=== PATIENT | male | born 1935 | race Caucasian/White ===

== ENCOUNTER 2020-04-19 14:13 | Inpatient (IN) | payer OTHER, MEDICAID ==
[~2020-04-19] VITALS: Ht 177.8 cm; Wt 77.0 kg
[2020-04-19 19:49] LABS: Basophils # (auto) 0.1 10 ^3/uL (0-0.2); Basophils % (auto) 0.7 % (0.0-2.0); Eosinophils # (auto) 0 10 ^3/uL (0-0.8); Eosinophils % (auto) 0.4 % (0.0-7.0); Hematocrit 43.6 % (41.0-53.0); Hemoglobin 15.2 g/dL (13.5-17.5); Lymphocytes # (auto) 1.4 10 ^3/uL (0.4-5.4); Lymphocytes % (auto) 13.4 % (10.0-50.0); Mean Corpuscular Hemoglobin 33.6 pg (28.0-32.0); Mean Corpuscular Volume 96.1 fL (80.0-100.0); Monocytes # (auto) 0.8 10 ^3/uL (0-1.3); Monocytes % (auto) 7.4 % (0.0-12.0); Neutrophils # (auto) 8.2 10 ^3/uL (1.6-8.6); Neutrophils % (auto) 78.1 % (37.0-80.0); Platelet Count (auto) 154 10^3/uL (140-450); Red Blood Cells 4.54 10^6/uL (4.5-5.90); Red Cell Distribution Width 13.7 % (11.8-14.3); White Blood Cell 10.5 10^3/uL (4.4-10.8)
[2020-04-19 20:19] LABS: Albumin 1.7 g/dL (3.4-5.0); Anion Gap 8 (5-15); Blood Urea Nitrogen 9 mg/dL (7-18); Carbon Dioxide 14 mmol/L (21-32); Chloride 130 mmol/L (98-107); Glucose 93 mg/dL (74-106); Sodium 152 mmol/L (136-145)
[2020-04-19 20:28] LABS: Alanine Aminotransferase 12 U/L (16-61); Alkaline Phosphatase 27 U/L (45-117); Aspartate Aminotransferase 7 U/L (15-37); Bilirubin, Total 0.4 mg/dL (0.2-1.0); GFR African American 451 mL/min; GFR Non-African American 373 mL/min; Total Protein 3.4 g/dL (6.4-8.2)
[2020-04-19 20:40] LABS: Potassium 1.8 mmol/L (3.5-5.1)
[2020-04-19 20:41] LABS: Calcium < 5.0 mg/dL (8.5-10.1)
[2020-04-19] MEDS ORDERED: POTASSIUM CHL 20MEQ/100ML 100 ML IV ONE (20:45)
[2020-04-19] MEDS ORDERED: POTASSIUM EFFERVESENT TAB 25 MEQ PO ONE (20:45)
[2020-04-19] MEDS ORDERED: CALCIUM GLUC 4.65meq/50ml D5AE 50 ML IV ONE (21:00)
[2020-04-19 21:45] LABS: Urine Bacteria NONE SEEN /hpf (None Seen); Urine Blood Negative /uL (Negative); Urine Specific Gravity 1.016 (1.001-1.035); Urine WBC 1 /hpf (0 - 3)
[2020-04-19 22:09] LABS: Alcohol, Urine < 3.0 mg/dL (0-10); Amphetamine Screen, Urine NEGATIVE (NEGATIVE); Barbiturate Scree,Urine NEGATIVE (NEGATIVE); Benzodiazephine Screen, Urine NEGATIVE (NEGATIVE); Cannabinoid Screen, Urine NEGATIVE (NEGATIVE); Cocaine Screen, Urine NEGATIVE (NEGATIVE); Opiate Scree,Urine NEGATIVE (NEGATIVE); Phencyclidine Screen, Urine NEGATIVE (NEGATIVE)
[2020-04-19] MEDS ORDERED: DOCUSATE SOD 100 MG CAP PO PRN (23:00)
[2020-04-19] MEDS ORDERED: HYDROcodone-ACET 5/325MG TAB PO PRN (23:00)
[2020-04-19] MEDS: SODIUM CHLORIDE 0.9% 1,000 ML IV SCH (23:00)
[2020-04-19] MEDS ORDERED: ONDANSETRON HCL 4 MG/2 ML VIAL IV PRN (23:00)
[2020-04-20 07:30] LABS: Basophils # (auto) 0 10 ^3/uL (0-0.2); Basophils % (auto) 0.4 % (0.0-2.0); Eosinophils # (auto) 0.1 10 ^3/uL (0-0.8); Eosinophils % (auto) 1.5 % (0.0-7.0); Hematocrit 44.2 % (41.0-53.0); Hemoglobin 15.2 g/dL (13.5-17.5); Lymphocytes # (auto) 0.9 10 ^3/uL (0.4-5.4); Lymphocytes % (auto) 12.1 % (10.0-50.0); Mean Corpuscular Hemoglobin 33.3 pg (28.0-32.0); Mean Corpuscular Hgb Conc. 34.4 g/dL (32.0-36.0); Mean Corpuscular Volume 96.9 fL (80.0-100.0); Monocytes # (auto) 0.5 10 ^3/uL (0-1.3); Monocytes % (auto) 7.2 % (0.0-12.0); Neutrophils % (auto) 78.8 % (37.0-80.0); Platelet Count (auto) 133 10^3/uL (140-450); Red Blood Cells 4.56 10^6/uL (4.5-5.90); Red Cell Distribution Width 13.8 % (11.8-14.3); White Blood Cell 7.6 10^3/uL (4.4-10.8)
[2020-04-20 07:42] LABS: Potassium 3.9 mmol/L (3.5-5.1)
[2020-04-20 07:56] LABS: BUN/Creatinine Ratio 14.9; Calcium 8.6 mg/dL (8.5-10.1)
[2020-04-20] MEDS ORDERED: DEXTROSE (50%) 50ML SYRG IV PRN (09:45)
[2020-04-20] MEDS: ACCU-CHEK COMFORT CURVE STRIP VI SCH ×3 (12:21→21:40)
[2020-04-20] MEDS: InsuLIN REG 1unit/0.01ml Soln (100units/ml) SC SCH ×3 (12:23→21:50)
[2020-04-20 16:00] VITALS: BP 147/95
[2020-04-20] MEDS: ACETAMINOPHEN 325 MG TAB PO PRN (16:30)
[2020-04-20] MEDS: SODIUM CHLORIDE 0.9% 1,000 ML IV SCH (18:50)
[2020-04-20 22:00] VITALS: BP 144/75
[2020-04-21 05:02] VITALS: BP 131/54
[2020-04-21] MEDS: ACCU-CHEK COMFORT CURVE STRIP VI SCH ×4 (06:28→21:56)
[2020-04-21] MEDS: InsuLIN REG 1unit/0.01ml Soln (100units/ml) SC SCH ×4 (06:36→21:59)
[2020-04-21 08:00] VITALS: BP 167/93
[2020-04-21 09:00] VITALS: BP 147/37
[2020-04-21 10:17] LABS: BUN/Creatinine Ratio 16.2; Potassium 3.9 mmol/L (3.5-5.1)
[2020-04-21] MEDS: SODIUM CHLORIDE 0.9% 1,000 ML IV SCH (11:46)
[2020-04-21] MEDS: ACETAMINOPHEN 325 MG TAB PO PRN ×2 (11:48→21:58)
[2020-04-21 13:58] LABS: Basophils # (auto) 0.1 10 ^3/uL (0-0.2); Basophils % (auto) 0.7 % (0.0-2.0); Eosinophils # (auto) 0.2 10 ^3/uL (0-0.8); Eosinophils % (auto) 3.2 % (0.0-7.0); Hematocrit 44.4 % (41.0-53.0); Hemoglobin 15.2 g/dL (13.5-17.5); Lymphocytes # (auto) 1.1 10 ^3/uL (0.4-5.4); Lymphocytes % (auto) 15.2 % (10.0-50.0); Mean Corpuscular Hemoglobin 33.4 pg (28.0-32.0); Mean Corpuscular Hgb Conc. 34.3 g/dL (32.0-36.0); Mean Corpuscular Volume 97.3 fL (80.0-100.0); Monocytes # (auto) 0.4 10 ^3/uL (0-1.3); Monocytes % (auto) 5.5 % (0.0-12.0); Neutrophils # (auto) 5.4 10 ^3/uL (1.6-8.6); Neutrophils % (auto) 75.4 % (37.0-80.0); Platelet Count (auto) 131 10^3/uL (140-450); Red Blood Cells 4.56 10^6/uL (4.5-5.90); Red Cell Distribution Width 13.8 % (11.8-14.3); White Blood Cell 7.1 10^3/uL (4.4-10.8)
[2020-04-21 15:50] VITALS: BP 162/78
[2020-04-21] MEDS ORDERED: cloNIDine HCL 0.1 MG TAB PO PRN (22:00)
[2020-04-21 22:24] VITALS: BP 165/92
[2020-04-22] MEDS: SODIUM CHLORIDE 0.9% 1,000 ML IV SCH (04:11)
[2020-04-22 05:00] VITALS: BP 130/73
[2020-04-22] MEDS: ACCU-CHEK COMFORT CURVE STRIP VI SCH ×4 (06:23→21:46)
[2020-04-22] MEDS: InsuLIN REG 1unit/0.01ml Soln (100units/ml) SC SCH ×4 (06:25→21:53)
[2020-04-22 09:00] VITALS: BP 165/83
[2020-04-22] MEDS ORDERED: PANTOPRAZOLE 40 MG TAB PO ONE (10:30)
[2020-04-22] MEDS ORDERED: DOCUSATE SOD 100 MG CAP PO ONE (10:30)
[2020-04-22] MEDS ORDERED: NAPROXEN 500 MG TAB PO ONE (10:30)
[2020-04-22 13:00] VITALS: BP 123/70
[2020-04-22 17:00] VITALS: BP 147/82
[2020-04-22] MEDS: NAPROXEN 500 MG TAB PO SCH (21:46)
[2020-04-22 22:00] VITALS: BP 109/87
[2020-04-22] MEDS: DOCUSATE SOD 100 MG CAP PO SCH (22:03)
[2020-04-23] MEDS: ACETAMINOPHEN 325 MG TAB PO PRN ×2 (04:29→20:40)
[2020-04-23 05:00] VITALS: BP 146/79
[2020-04-23 06:13] LABS: Calcium 8.1 mg/dL (8.5-10.1)
[2020-04-23 06:17] LABS: BUN/Creatinine Ratio 23.1
[2020-04-23] MEDS: ACCU-CHEK COMFORT CURVE STRIP VI SCH ×4 (06:37→23:03)
[2020-04-23] MEDS: InsuLIN REG 1unit/0.01ml Soln (100units/ml) SC SCH ×4 (06:40→23:02)
[2020-04-23 08:00] VITALS: BP 154/80
[2020-04-23 09:00] VITALS: BP 154/80
[2020-04-23] MEDS: DOCUSATE SOD 100 MG CAP PO SCH ×2 (10:00→22:00)
[2020-04-23] MEDS: PANTOPRAZOLE 40 MG TAB PO SCH (10:21)
[2020-04-23] MEDS: NAPROXEN 500 MG TAB PO SCH ×2 (10:28→23:00)
[2020-04-23 13:00] VITALS: BP 154/70
[2020-04-23 17:00] VITALS: BP 152/80
[2020-04-23 22:00] VITALS: BP 150/77
[2020-04-24 05:00] VITALS: BP 161/91
[2020-04-24] MEDS: ACCU-CHEK COMFORT CURVE STRIP VI SCH ×2 (06:16→11:29)
[2020-04-24] MEDS: InsuLIN REG 1unit/0.01ml Soln (100units/ml) SC SCH ×2 (06:51→11:34)
[2020-04-24 09:00] VITALS: BP 159/85
[2020-04-24] MEDS: PANTOPRAZOLE 40 MG TAB PO SCH (10:41)
[2020-04-24] MEDS: NAPROXEN 500 MG TAB PO SCH (10:42)
[2020-04-24] MEDS: DOCUSATE SOD 100 MG CAP PO SCH (10:42)
[2020-04-24 13:00] VITALS: BP 142/75
[2020-04-24 15:48] VITALS: BP 142/75
== END 2020-04-24 19:22 | DRG 641 ==
LOC: EDBD 14:13 → ER 14:13 → TELE 14:14 → TELE-WESTW 04-20 14:10
PROVIDERS: ADMIT Hospitalist; ATTEND Internal Medicine Geriatric Medicine
DX: E86.0 Dehydration (principal); N17.9 Acute kidney failure, unspecified; M54.16 Radiculopathy, lumbar region; E87.0 Hyperosmolality and hypernatremia; M25.552 Pain in left hip; E87.6 Hypokalemia; E83.51 Hypocalcemia; I10 Essential (primary) hypertension; E11.9 Type 2 diabetes mellitus without complications; R55 Syncope and collapse; W18.39XA Other fall on same level, initial encounter; Z20.822 Contact with and (suspected) exposure to COVID-19; M85.80 Other specified disorders of bone density and structure, unspecified site; Z85.828 Personal history of other malignant neoplasm of skin; Y93.89 Activity, other specified; Y92.098 Other place in other non-institutional residence as the place of occurrence of the external cause; Y99.8 Other external cause status
CPT/HCPCS: 36415; 70450; 71045; 72100; 72125; 72128; 72131; 73502; 80048; 80053; 80061; 80307; 80320; 81001; 82962; 83036; 83735; 83880; 84484; 85025; 87426; 87493; 96361; 96365; 97116; 97163; 97530; G0378; J0610; J1815; J3480

== ENCOUNTER 2021-10-10 12:42 | Emergency (ER) | payer OTHER, MEDICAID ==
[~2021-10-10] VITALS: Ht 177.8 cm; Wt 90.0 kg
[2021-10-10 12:55] VITALS: BP 142/75
[2021-10-10 13:54] LABS: Basophils # (auto) 0 10 ^3/uL (0-0.2); Basophils % (auto) 0.5 % (0.0-2.0); Eosinophils # (auto) 0.1 10 ^3/uL (0-0.8); Eosinophils % (auto) 1.3 % (0.0-7.0); Hematocrit 41.3 % (41.0-53.0); Hemoglobin 13.6 g/dL (13.5-17.5); Lymphocytes # (auto) 0.7 10 ^3/uL (0.4-5.4); Lymphocytes % (auto) 11.9 % (10.0-50.0); Mean Corpuscular Hemoglobin 32.2 pg (28.0-32.0); Mean Corpuscular Hgb Conc. 32.8 g/dL (32.0-36.0); Mean Corpuscular Volume 98.1 fL (80.0-100.0); Monocytes # (auto) 0.5 10 ^3/uL (0-1.3); Monocytes % (auto) 7.7 % (0.0-12.0); Neutrophils # (auto) 4.6 10 ^3/uL (1.6-8.6); Neutrophils % (auto) 78.6 % (37.0-80.0); Red Blood Cells 4.22 10^6/uL (4.5-5.90); Red Cell Distribution Width 12.9 % (11.8-14.3); White Blood Cell 5.9 10^3/uL (4.4-10.8)
[2021-10-10 14:10] LABS: Albumin 3.5 g/dL (3.4-5.0); Anion Gap 10 (5-15); Blood Alcohol < 3.0 mg/dL (0-5); Blood Urea Nitrogen 24 mg/dL (7-18); Calcium 8.1 mg/dL (8.5-10.1); Carbon Dioxide 18 mmol/L (21-32); Chloride 111 mmol/L (98-107); Glucose 170 mg/dL (74-106); Potassium 3.8 mmol/L (3.5-5.1); Sodium 139 mmol/L (136-145)
[2021-10-10 14:13] LABS: Alanine Aminotransferase 18 U/L (16-61); Alkaline Phosphatase 68 U/L (45-117); Aspartate Aminotransferase 16 U/L (15-37); BUN/Creatinine Ratio 22.4; Bilirubin, Total 0.5 mg/dL (0.2-1.0); GFR African American 84 mL/min; GFR Non-African American 69 mL/min; Total Protein 6.4 g/dL (6.4-8.2)
[2021-10-10] MEDS ORDERED: SODIUM CHLORIDE 0.9% 1,000 ML IV ONE (14:45)
== END 2021-10-10 18:44 | disposition home or self-care (01) ==
LOC: EDBD 12:42 → ER 12:42
DX: T67.5XXA Heat exhaustion, unspecified, initial encounter (principal); R41.82 Altered mental status, unspecified; E11.65 Type 2 diabetes mellitus with hyperglycemia; I10 Essential (primary) hypertension; X58.XXXA Exposure to other specified factors, initial encounter; Y93.89 Activity, other specified; Y92.89 Other specified places as the place of occurrence of the external cause; Y99.8 Other external cause status; M19.90 Unspecified osteoarthritis, unspecified site
CPT/HCPCS: 36415; 70450; 71045; 80053; 80320; 83735; 84484; 85025; 93005; 96360; 96361; 99285; J7030

== ENCOUNTER 2022-04-27 12:18 | Inpatient (IN) | payer OTHER ==
[~2022-04-27] VITALS: Ht 182.9 cm; Wt 97.9 kg
[2022-04-27] MEDS ORDERED: SODIUM CHLORIDE 0.9% 1,000 ML IV ONE (13:45)
[2022-04-27 13:49] LABS: Basophils # (auto) 0.1 10 ^3/uL (0-0.2); Basophils % (auto) 0.5 % (0.0-2.0); Eosinophils # (auto) 0.1 10 ^3/uL (0-0.8); Eosinophils % (auto) 0.6 % (0.0-7.0); Hematocrit 48.5 % (41.0-53.0); Hemoglobin 16.8 g/dL (13.5-17.5); Lymphocytes # (auto) 1.4 10 ^3/uL (0.4-5.4); Lymphocytes % (auto) 14.8 % (10.0-50.0); Mean Corpuscular Hemoglobin 33.1 pg (28.0-32.0); Mean Corpuscular Hgb Conc. 34.7 g/dL (32.0-36.0); Mean Corpuscular Volume 95.4 fL (80.0-100.0); Monocytes # (auto) 0.8 10 ^3/uL (0-1.3); Monocytes % (auto) 8.1 % (0.0-12.0); Neutrophils # (auto) 7.1 10 ^3/uL (1.6-8.6); Nucleated Red Blood Cells % 0.1 %; Red Blood Cells 5.08 10^6/uL (4.5-5.90); Red Cell Distribution Width 13.1 % (11.8-14.3); White Blood Cell 9.3 10^3/uL (4.4-10.8)
[2022-04-27 13:51] LABS: Albumin 3.4 g/dL (3.4-5.0); BUN/Creatinine Ratio 30.6; Potassium 3.6 mmol/L (3.5-5.1)
[2022-04-27 13:54] LABS: Bilirubin, Total 0.9 mg/dL (0.2-1.0); Total Protein 7.3 g/dL (6.4-8.2)
[2022-04-27 14:09] LABS: Urine Bacteria NONE SEEN /hpf (None Seen); Urine Blood 1+ /uL (Negative); Urine Hyaline Cast FEW /lpf (0 - 2); Urine Mucus FEW (None Seen); Urine Specific Gravity 1.025 (1.001-1.035); Urine WBC 4 /hpf (0 - 3)
[2022-04-27 14:19] LABS: INR 1.04 (0.9-1.15); Partial Thromboplastin Time 26.2 sec (24.6-33.4)
[2022-04-27] MEDS ORDERED: ACETAMINOPHEN 325 MG TAB PO PRN (18:45)
[2022-04-27] MEDS ORDERED: PANTOPRAZOLE 40 MG/10 ML VIAL INJ IV ONE (18:45)
[2022-04-27] MEDS ORDERED: DEXTROSE (50%) 50ML SYRG IV PRN (19:00)
[2022-04-27] MEDS: ACCU-CHEK COMFORT CURVE STRIP VI SCH (21:50)
[2022-04-27] MEDS: InsuLIN REG 1unit/0.01ml Soln (100units/ml) SC SCH ×2 (21:57→22:00)
[2022-04-27] MEDS: SODIUM CHLORIDE 0.9% 1,000 ML IV SCH (22:56)
[2022-04-28 00:34] VITALS: BP 142/72
[2022-04-28 04:30] VITALS: BP 133/70
[2022-04-28] MEDS ORDERED: MEMA1TAB3 PO (05:50)
[2022-04-28] MEDS ORDERED: AML5T PO (05:50)
[2022-04-28] MEDS: ACCU-CHEK COMFORT CURVE STRIP VI SCH ×4 (06:25→22:46)
[2022-04-28] MEDS: InsuLIN REG 1unit/0.01ml Soln (100units/ml) SC SCH ×4 (06:26→22:47)
[2022-04-28 06:34] LABS: Basophils # (auto) 0.1 10 ^3/uL (0-0.2); Basophils % (auto) 0.8 % (0.0-2.0); Eosinophils # (auto) 0.2 10 ^3/uL (0-0.8); Eosinophils % (auto) 2.4 % (0.0-7.0); Hematocrit 43.2 % (41.0-53.0); Hemoglobin 15.2 g/dL (13.5-17.5); Lymphocytes # (auto) 1.5 10 ^3/uL (0.4-5.4); Lymphocytes % (auto) 16.3 % (10.0-50.0); Mean Corpuscular Hemoglobin 33.2 pg (28.0-32.0); Mean Corpuscular Hgb Conc. 35.2 g/dL (32.0-36.0); Mean Corpuscular Volume 94.3 fL (80.0-100.0); Monocytes # (auto) 0.9 10 ^3/uL (0-1.3); Monocytes % (auto) 10.2 % (0.0-12.0); Neutrophils # (auto) 6.5 10 ^3/uL (1.6-8.6); Neutrophils % (auto) 70.3 % (37.0-80.0); Nucleated Red Blood Cells % 0.1 %; Red Blood Cells 4.58 10^6/uL (4.5-5.90); Red Cell Distribution Width 13.7 % (11.8-14.3); White Blood Cell 9.2 10^3/uL (4.4-10.8)
[2022-04-28 06:41] LABS: Potassium 3.2 mmol/L (3.5-5.1)
[2022-04-28 06:46] LABS: BUN/Creatinine Ratio 41.2; Calcium 8.8 mg/dL (8.5-10.1)
[2022-04-28 06:48] LABS: Bilirubin, Total 0.9 mg/dL (0.2-1.0); Total Protein 6.6 g/dL (6.4-8.2)
[2022-04-28 09:00] VITALS: BP 117/83
[2022-04-28] MEDS: SODIUM CHLORIDE 0.9% 1,000 ML IV SCH (09:03)
[2022-04-28] MEDS ORDERED: PANTOPRAZOLE 40 MG/10 ML VIAL INJ IV SCH (10:00)
[2022-04-28 13:00] VITALS: BP 138/70
[2022-04-28 17:00] VITALS: BP 143/67
[2022-04-28 22:00] VITALS: BP 124/72
[2022-04-29] MEDS: SODIUM CHLORIDE 0.9% 1,000 ML IV SCH ×2 (02:12→18:12)
[2022-04-29 05:00] VITALS: BP 129/74
[2022-04-29] MEDS: InsuLIN REG 1unit/0.01ml Soln (100units/ml) SC SCH ×4 (06:34→21:42)
[2022-04-29] MEDS: ACCU-CHEK COMFORT CURVE STRIP VI SCH ×4 (06:36→21:34)
[2022-04-29 09:00] VITALS: BP 147/70
[2022-04-29] MEDS ORDERED: FLUMAZENIL 0.1 MG/ML INJ 10ML MDV IV ONE (09:37)
[2022-04-29] MEDS ORDERED: NALOXONE HCL 0.4 MG/ML VIAL ONE (09:37)
[2022-04-29] MEDS ORDERED: diphenhdrAMINE HCL 50 MG/1 ML VL ONE (09:38)
[2022-04-29] MEDS ORDERED: LIDOCAINE VISCOUS 2% 15ML UD ONE (09:38)
[2022-04-29] MEDS ORDERED: MIDAZOLAM HCL 2MG/2ML 2ml VIAL (1mg/ml) ONE (09:38)
[2022-04-29] MEDS: fentaNYL CITRATE 100 MCG/2 ML VL ONE ×2 (10:17→10:22)
[2022-04-29] MEDS: SUCRALFATE 1 GM/10 ML ORAL SUSP PO SCH ×3 (12:48→21:34)
[2022-04-29 13:00] VITALS: BP 156/82
[2022-04-29] MEDS ORDERED: SUCR1SUS10 PO (16:42)
[2022-04-29] MEDS ORDERED: PANT40TA2 PO (16:43)
[2022-04-29 17:00] VITALS: BP 153/78
[2022-04-29] MEDS: PANTOPRAZOLE 40 MG/10 ML VIAL INJ IV SCH (21:34)
[2022-04-29 22:00] VITALS: BP 159/85
[2022-04-30] MEDS: SODIUM CHLORIDE 0.9% 1,000 ML IV SCH ×2 (04:40→17:06)
[2022-04-30 05:00] VITALS: BP 154/57
[2022-04-30] MEDS: InsuLIN REG 1unit/0.01ml Soln (100units/ml) SC SCH ×3 (06:47→17:07)
[2022-04-30] MEDS: SUCRALFATE 1 GM/10 ML ORAL SUSP PO SCH ×3 (06:51→17:07)
[2022-04-30] MEDS: ACCU-CHEK COMFORT CURVE STRIP VI SCH ×3 (06:51→17:06)
[2022-04-30] MEDS: PANTOPRAZOLE 40 MG/10 ML VIAL INJ IV SCH (08:56)
[2022-04-30 09:00] VITALS: BP 148/87
[2022-04-30 13:00] VITALS: BP 154/75
[2022-04-30 17:00] VITALS: BP 137/72
== END 2022-04-30 19:05 | disposition home or self-care (01) | DRG 382 ==
LOC: ER 12:18 → OVERFLOW 18:46 → WEST WING 21:41
PROVIDERS: ADMIT Nurse Practitioner Family; ATTEND Internal Medicine
PROC: 0DB68ZX Excision of Stomach, Via Natural or Artificial Opening Endoscopic, Diagnostic (ICD-10-PCS; 2022-04-29)
PROC: 0DB38ZX Excision of Lower Esophagus, Via Natural or Artificial Opening Endoscopic, Diagnostic (ICD-10-PCS; 2022-04-29)
PROC: 0DB98ZX Excision of Duodenum, Via Natural or Artificial Opening Endoscopic, Diagnostic (ICD-10-PCS; principal; 2022-04-29 10:12)
DX: K22.11 Ulcer of esophagus with bleeding (principal); K25.4 Chronic or unspecified gastric ulcer with hemorrhage; E11.65 Type 2 diabetes mellitus with hyperglycemia; E87.6 Hypokalemia; F02.80 Dementia in other diseases classified elsewhere, unspecified severity, without behavioral disturbance, psychotic disturbance, mood disturbance, and anxiety; G30.9 Alzheimer's disease, unspecified; M19.90 Unspecified osteoarthritis, unspecified site; K29.71 Gastritis, unspecified, with bleeding; K74.60 Unspecified cirrhosis of liver; H91.90 Unspecified hearing loss, unspecified ear; I10 Essential (primary) hypertension; K44.9 Diaphragmatic hernia without obstruction or gangrene
CPT/HCPCS: 36415; 43239; 71045; 74018; 74176; 80053; 81001; 82962; 83036; 84484; 85025; 85610; 85730; 86850; 86900; 86901; 87426; 93005; 96361; 96372; 96374; 97163; C9113; G0378; J1815; J2250

== ENCOUNTER 2022-05-03 14:24 | Inpatient (IN) | payer OTHER ==
[~2022-05-03] VITALS: Ht 175.3 cm; Wt 66.4 kg
[~2022-05-03 14:24] MED LIST: AML5T PO; MEMA1TAB3 PO; PANT40TA2 PO; SUCR1SUS10 PO
[2022-05-03] MEDS ORDERED: MORPHINE SULFATE 4 MG/ML SYR/VIAL IV ONE (16:15)
[2022-05-03 16:32] LABS: Basophils # (auto) 0 10 ^3/uL (0-0.2); Basophils % (auto) 0.3 % (0.0-2.0); Eosinophils # (auto) 0.1 10 ^3/uL (0-0.8); Eosinophils % (auto) 1.7 % (0.0-7.0); Hemoglobin 15.7 g/dL (13.5-17.5); Lymphocytes # (auto) 1.8 10 ^3/uL (0.4-5.4); Lymphocytes % (auto) 26.6 % (10.0-50.0); Mean Corpuscular Hemoglobin 33.4 pg (28.0-32.0); Mean Corpuscular Hgb Conc. 35.7 g/dL (32.0-36.0); Mean Corpuscular Volume 93.4 fL (80.0-100.0); Monocytes # (auto) 0.6 10 ^3/uL (0-1.3); Monocytes % (auto) 9.1 % (0.0-12.0); Neutrophils # (auto) 4.3 10 ^3/uL (1.6-8.6); Neutrophils % (auto) 62.3 % (37.0-80.0); Nucleated Red Blood Cells % 0.1 %; Red Blood Cells 4.71 10^6/uL (4.5-5.90); Red Cell Distribution Width 13.3 % (11.8-14.3); White Blood Cell 6.9 10^3/uL (4.4-10.8)
[2022-05-03 16:50] LABS: Albumin 3.5 g/dL (3.4-5.0); BUN/Creatinine Ratio 23.1; Calcium 8.7 mg/dL (8.5-10.1); Potassium 3.3 mmol/L (3.5-5.1)
[2022-05-03 16:51] LABS: INR 0.95 (0.9-1.15)
[2022-05-03 16:53] LABS: Bilirubin, Total 1.1 mg/dL (0.2-1.0); Total Protein 6.8 g/dL (6.4-8.2)
[2022-05-03 18:59] LABS: Urine Bacteria NONE SEEN /hpf (None Seen); Urine Blood Negative /uL (Negative); Urine Hyaline Cast FEW /lpf (0 - 2); Urine Mucus FEW (None Seen); Urine Specific Gravity 1.029 (1.001-1.035); Urine WBC 5 /hpf (0 - 3)
[2022-05-03] MEDS ORDERED: ASPirin 325 MG TAB PO ONE (19:30)
[2022-05-03] MEDS ORDERED: ONDANSETRON HCL 4 MG/2 ML VIAL IV PRN (21:15)
[2022-05-03] MEDS ORDERED: ACETAMINOPHEN 325 MG TAB PO PRN (21:15)
[2022-05-03] MEDS ORDERED: DOCUSATE SOD 100 MG CAP PO PRN (21:15)
[2022-05-03] MEDS ORDERED: POTASSIUM CHL 20 Meq TABLET PO ONE (21:30)
[2022-05-03] MEDS: metroNIDAZOLE 500MG/100ML 100 ML IV SCH (21:43)
[2022-05-03] MEDS: MEMANTINE HCL 5 MG TAB PO SCH (21:43)
[2022-05-03] MEDS: SUCRALFATE 1 GM/10 ML ORAL SUSP PO SCH (21:43)
[2022-05-03] MEDS: SODIUM CHLOR 0.9% PF (SALINE LOCK) 10ML VIAL/SYR IV SCH (21:44)
[2022-05-03] MEDS ORDERED: DEXTROSE (50%) 50ML SYRG IV PRN (21:45)
[2022-05-03] MEDS: InsuLIN REG 1unit/0.01ml Soln (100units/ml) SC SCH (22:02)
[2022-05-03] MEDS: ACCU-CHEK COMFORT CURVE STRIP VI SCH (22:03)
[2022-05-03] MEDS: CEFEPIME 1GM/ 50ML 50 ML IV SCH (22:47)
[2022-05-04 05:00] VITALS: BP 129/63
[2022-05-04 05:20] LABS: Basophils # (auto) 0 10 ^3/uL (0-0.2); Basophils % (auto) 0.7 % (0.0-2.0); Eosinophils # (auto) 0.2 10 ^3/uL (0-0.8); Eosinophils % (auto) 3.8 % (0.0-7.0); Hematocrit 39.6 % (41.0-53.0); Hemoglobin 13.9 g/dL (13.5-17.5); Lymphocytes # (auto) 1.6 10 ^3/uL (0.4-5.4); Lymphocytes % (auto) 27.5 % (10.0-50.0); Mean Corpuscular Hemoglobin 32.9 pg (28.0-32.0); Mean Corpuscular Hgb Conc. 35.1 g/dL (32.0-36.0); Mean Corpuscular Volume 93.8 fL (80.0-100.0); Monocytes # (auto) 0.6 10 ^3/uL (0-1.3); Neutrophils # (auto) 3.2 10 ^3/uL (1.6-8.6); Nucleated Red Blood Cells % 0.1 %; Red Blood Cells 4.23 10^6/uL (4.5-5.90); Red Cell Distribution Width 13.4 % (11.8-14.3); White Blood Cell 5.7 10^3/uL (4.4-10.8)
[2022-05-04 05:38] LABS: Albumin 2.9 g/dL (3.4-5.0); Calcium 8.2 mg/dL (8.5-10.1); Potassium 3.3 mmol/L (3.5-5.1)
[2022-05-04 05:41] LABS: Bilirubin, Total 0.5 mg/dL (0.2-1.0); Total Protein 5.9 g/dL (6.4-8.2)
[2022-05-04] MEDS: SUCRALFATE 1 GM/10 ML ORAL SUSP PO SCH ×4 (06:48→22:38)
[2022-05-04] MEDS: ACCU-CHEK COMFORT CURVE STRIP VI SCH ×4 (06:48→22:51)
[2022-05-04] MEDS: SODIUM CHLOR 0.9% PF (SALINE LOCK) 10ML VIAL/SYR IV SCH ×2 (06:48→14:00)
[2022-05-04] MEDS: metroNIDAZOLE 500MG/100ML 100 ML IV SCH ×3 (06:48→22:37)
[2022-05-04] MEDS: InsuLIN REG 1unit/0.01ml Soln (100units/ml) SC SCH ×4 (06:49→23:01)
[2022-05-04 09:31] VITALS: BP 129/70
[2022-05-04] MEDS: PANTOPRAZOLE 40 MG/10 ML VIAL INJ IV SCH (10:53)
[2022-05-04] MEDS: MEMANTINE HCL 5 MG TAB PO SCH ×2 (10:53→22:38)
[2022-05-04] MEDS: amLODIPine BESYLATE 5 MG TAB PO SCH (10:54)
[2022-05-04] MEDS: CEFEPIME 1GM/ 50ML 50 ML IV SCH (11:05)
[2022-05-04 12:44] VITALS: BP 134/73
[2022-05-04 16:44] VITALS: BP 151/73
[2022-05-04] MEDS ORDERED: POTASSIUM CHL 20 Meq TABLET PO ONE (19:45)
[2022-05-04 22:00] VITALS: BP 150/65
[2022-05-05] MEDS: CEFEPIME 1GM/ 50ML 50 ML IV SCH ×2 (00:29→11:35)
[2022-05-05] MEDS: SODIUM CHLOR 0.9% PF (SALINE LOCK) 10ML VIAL/SYR IV SCH ×4 (00:29→22:00)
[2022-05-05 05:00] VITALS: BP 142/73
[2022-05-05] MEDS: SUCRALFATE 1 GM/10 ML ORAL SUSP PO SCH ×4 (06:13→22:42)
[2022-05-05] MEDS: metroNIDAZOLE 500MG/100ML 100 ML IV SCH (06:14)
[2022-05-05] MEDS: ACCU-CHEK COMFORT CURVE STRIP VI SCH ×4 (06:15→22:47)
[2022-05-05] MEDS: InsuLIN REG 1unit/0.01ml Soln (100units/ml) SC SCH ×4 (06:24→22:53)
[2022-05-05 08:40] LABS: Basophils # (auto) 0.1 10 ^3/uL (0-0.2); Eosinophils # (auto) 0.2 10 ^3/uL (0-0.8); Eosinophils % (auto) 3.2 % (0.0-7.0); Hematocrit 40.3 % (41.0-53.0); Hemoglobin 14.3 g/dL (13.5-17.5); Lymphocytes # (auto) 1.4 10 ^3/uL (0.4-5.4); Lymphocytes % (auto) 24.4 % (10.0-50.0); Mean Corpuscular Hemoglobin 33.6 pg (28.0-32.0); Mean Corpuscular Hgb Conc. 35.5 g/dL (32.0-36.0); Mean Corpuscular Volume 94.8 fL (80.0-100.0); Monocytes # (auto) 0.5 10 ^3/uL (0-1.3); Neutrophils # (auto) 3.5 10 ^3/uL (1.6-8.6); Neutrophils % (auto) 62.4 % (37.0-80.0); Nucleated Red Blood Cells % 0.1 %; Red Blood Cells 4.25 10^6/uL (4.5-5.90); Red Cell Distribution Width 13.6 % (11.8-14.3); White Blood Cell 5.6 10^3/uL (4.4-10.8)
[2022-05-05 09:08] VITALS: BP 127/64
[2022-05-05 09:15] LABS: Albumin 2.8 g/dL (3.4-5.0); BUN/Creatinine Ratio 24.7; Calcium 8.2 mg/dL (8.5-10.1); Potassium 4.4 mmol/L (3.5-5.1)
[2022-05-05 09:20] LABS: Bilirubin, Total 0.8 mg/dL (0.2-1.0); Total Protein 5.7 g/dL (6.4-8.2)
[2022-05-05] MEDS: PANTOPRAZOLE 40 MG/10 ML VIAL INJ IV SCH (11:35)
[2022-05-05] MEDS: MEMANTINE HCL 5 MG TAB PO SCH ×2 (11:35→22:42)
[2022-05-05] MEDS: amLODIPine BESYLATE 5 MG TAB PO SCH (11:36)
[2022-05-05] MEDS: HYDROcodone-ACET 5/325MG TAB PO PRN ×2 (11:49→16:01)
[2022-05-05 13:00] VITALS: BP 141/58
[2022-05-05 16:39] VITALS: BP 145/64
[2022-05-05 22:00] VITALS: BP_SYST 129; BP_SYST 157; BP_DIAS 70; BP_DIAS 73
[2022-05-05] MEDS ORDERED: hydrALAZINE HCL 20 MG/ML VL IV PRN (22:15)
[2022-05-05] MEDS: ATORVASTATIN 20 MG TAB PO SCH (22:42)
[2022-05-06 05:00] VITALS: BP 153/85
[2022-05-06] MEDS: SODIUM CHLOR 0.9% PF (SALINE LOCK) 10ML VIAL/SYR IV SCH ×3 (05:48→22:06)
[2022-05-06] MEDS: ACCU-CHEK COMFORT CURVE STRIP VI SCH ×4 (06:25→22:06)
[2022-05-06] MEDS: SUCRALFATE 1 GM/10 ML ORAL SUSP PO SCH ×4 (06:25→22:05)
[2022-05-06 06:48] LABS: INR 0.97 (0.9-1.15); Partial Thromboplastin Time 27.9 sec (24.6-33.4)
[2022-05-06 06:50] LABS: BUN/Creatinine Ratio 18.2; Calcium 8.6 mg/dL (8.5-10.1)
[2022-05-06 06:55] LABS: Basophils # (auto) 0 10 ^3/uL (0-0.2); Basophils % (auto) 0.6 % (0.0-2.0); Eosinophils # (auto) 0.2 10 ^3/uL (0-0.8); Eosinophils % (auto) 2.7 % (0.0-7.0); Hematocrit 41.5 % (41.0-53.0); Hemoglobin 14.4 g/dL (13.5-17.5); Lymphocytes # (auto) 1.2 10 ^3/uL (0.4-5.4); Lymphocytes % (auto) 19.9 % (10.0-50.0); Mean Corpuscular Hemoglobin 32.8 pg (28.0-32.0); Mean Corpuscular Hgb Conc. 34.6 g/dL (32.0-36.0); Mean Corpuscular Volume 94.6 fL (80.0-100.0); Monocytes # (auto) 0.6 10 ^3/uL (0-1.3); Monocytes % (auto) 9.5 % (0.0-12.0); Neutrophils % (auto) 67.3 % (37.0-80.0); Red Blood Cells 4.38 10^6/uL (4.5-5.90); Red Cell Distribution Width 13.6 % (11.8-14.3); White Blood Cell 5.9 10^3/uL (4.4-10.8)
[2022-05-06] MEDS: InsuLIN REG 1unit/0.01ml Soln (100units/ml) SC SCH ×4 (07:00→22:08)
[2022-05-06 08:46] VITALS: BP 145/82
[2022-05-06] MEDS: MEMANTINE HCL 5 MG TAB PO SCH ×2 (10:00→22:05)
[2022-05-06] MEDS: PANTOPRAZOLE 40 MG/10 ML VIAL INJ IV SCH (10:00)
[2022-05-06] MEDS: amLODIPine BESYLATE 5 MG TAB PO SCH (10:00)
[2022-05-06 17:23] VITALS: BP 155/84
[2022-05-06] MEDS: HYDROcodone-ACET 5/325MG TAB PO PRN (17:26)
[2022-05-06] MEDS ORDERED: MORPHINE SULFATE INJ 2 MG/ml SYRG IV PRN (18:45)
[2022-05-06 22:00] VITALS: BP 137/77
[2022-05-06] MEDS: ATORVASTATIN 20 MG TAB PO SCH (22:05)
[2022-05-07 04:55] VITALS: BP 142/86
[2022-05-07] MEDS: InsuLIN REG 1unit/0.01ml Soln (100units/ml) SC SCH ×4 (06:43→22:02)
[2022-05-07] MEDS: SODIUM CHLOR 0.9% PF (SALINE LOCK) 10ML VIAL/SYR IV SCH ×3 (06:43→22:00)
[2022-05-07] MEDS: SUCRALFATE 1 GM/10 ML ORAL SUSP PO SCH ×4 (06:44→22:00)
[2022-05-07] MEDS: ACCU-CHEK COMFORT CURVE STRIP VI SCH ×4 (06:44→22:00)
[2022-05-07 08:00] VITALS: BP 132/82
[2022-05-07 08:47] VITALS: BP 132/82
[2022-05-07] MEDS: PANTOPRAZOLE 40 MG/10 ML VIAL INJ IV SCH (10:22)
[2022-05-07] MEDS: MEMANTINE HCL 5 MG TAB PO SCH ×2 (10:22→22:00)
[2022-05-07] MEDS: amLODIPine BESYLATE 5 MG TAB PO SCH (10:23)
[2022-05-07 12:24] VITALS: BP 119/70
[2022-05-07 16:52] VITALS: BP 120/80
[2022-05-07] MEDS: HYDROcodone-ACET 5/325MG TAB PO PRN (18:22)
[2022-05-07 22:00] VITALS: BP 112/69
[2022-05-07] MEDS: ATORVASTATIN 20 MG TAB PO SCH (22:00)
[2022-05-08 05:00] VITALS: BP 130/73
[2022-05-08] MEDS: SODIUM CHLOR 0.9% PF (SALINE LOCK) 10ML VIAL/SYR IV SCH ×3 (06:31→21:35)
[2022-05-08] MEDS: SUCRALFATE 1 GM/10 ML ORAL SUSP PO SCH ×4 (06:31→21:35)
[2022-05-08] MEDS: ACCU-CHEK COMFORT CURVE STRIP VI SCH ×4 (06:31→21:36)
[2022-05-08] MEDS: InsuLIN REG 1unit/0.01ml Soln (100units/ml) SC SCH ×4 (06:32→21:36)
[2022-05-08 08:00] VITALS: BP 150/84
[2022-05-08] MEDS: PANTOPRAZOLE 40 MG/10 ML VIAL INJ IV SCH (10:23)
[2022-05-08] MEDS: MEMANTINE HCL 5 MG TAB PO SCH ×2 (10:24→21:36)
[2022-05-08] MEDS: amLODIPine BESYLATE 5 MG TAB PO SCH (10:25)
[2022-05-08] MEDS: HYDROcodone-ACET 5/325MG TAB PO PRN (10:29)
[2022-05-08 13:00] VITALS: BP 136/61
[2022-05-08 16:28] VITALS: BP 119/56
[2022-05-08] MEDS: ATORVASTATIN 20 MG TAB PO SCH (21:36)
[2022-05-08 22:00] VITALS: BP 135/54
[2022-05-09] VITALS (9 sets, daily range): BP systolic 110–150; BP diastolic 68–82
[2022-05-09] MEDS: ACCU-CHEK COMFORT CURVE STRIP VI SCH ×4 (06:28→21:24)
[2022-05-09] MEDS: InsuLIN REG 1unit/0.01ml Soln (100units/ml) SC SCH ×4 (06:28→22:03)
[2022-05-09] MEDS: SODIUM CHLOR 0.9% PF (SALINE LOCK) 10ML VIAL/SYR IV SCH ×3 (06:28→21:24)
[2022-05-09] MEDS: SUCRALFATE 1 GM/10 ML ORAL SUSP PO SCH ×4 (06:28→21:24)
[2022-05-09] MEDS ORDERED: IOHEXOL 350 MG/ML 100ML IJ ONE ×2 (08:19→10:40)
[2022-05-09] MEDS ORDERED: ANGIOMAX 250 MG VIAL IV ONE (10:38)
[2022-05-09] MEDS ORDERED: fentaNYL CITRATE 100 MCG/2 ML VL ONE (10:38)
[2022-05-09] MEDS ORDERED: MIDAZOLAM HCL 2MG/2ML 2ml VIAL (1mg/ml) ONE (10:38)
[2022-05-09] MEDS ORDERED: SODIUM CHL 0.9% 50 ML ONE (10:38)
[2022-05-09] MEDS ORDERED: LIDOCAINE 2%HCL (LOCAL ANESTH.) INJ 20ML MDV ONE (10:41)
[2022-05-09] MEDS ORDERED: hydrALAZINE HCL 20 MG/ML VL ONE (11:49)
[2022-05-09] MEDS ORDERED: CLOPIDOGREL 300 MG TAB ONE (12:16)
[2022-05-09] MEDS ORDERED: ATOR20TA50 PO (14:27)
[2022-05-09] MEDS ORDERED: CLOP75TA28 PO (14:27)
[2022-05-09] MEDS: PANTOPRAZOLE 40 MG/10 ML VIAL INJ IV SCH (15:17)
[2022-05-09] MEDS: MEMANTINE HCL 5 MG TAB PO SCH ×2 (17:45→21:24)
[2022-05-09] MEDS: amLODIPine BESYLATE 5 MG TAB PO SCH (17:45)
[2022-05-09] MEDS: ATORVASTATIN 20 MG TAB PO SCH (21:23)
[2022-05-10 05:00] VITALS: BP 126/67
[2022-05-10] MEDS: SODIUM CHLOR 0.9% PF (SALINE LOCK) 10ML VIAL/SYR IV SCH (06:00)
[2022-05-10] MEDS: ACCU-CHEK COMFORT CURVE STRIP VI SCH ×2 (06:38→12:53)
[2022-05-10] MEDS: InsuLIN REG 1unit/0.01ml Soln (100units/ml) SC SCH ×2 (06:44→12:54)
[2022-05-10] MEDS: SUCRALFATE 1 GM/10 ML ORAL SUSP PO SCH ×2 (06:54→10:00)
[2022-05-10 09:00] VITALS: BP 137/86
[2022-05-10] MEDS ORDERED: CLOPIDOGREL BISULFATE 75 MG TAB PO SCH (10:00)
[2022-05-10] MEDS: PANTOPRAZOLE 40 MG/10 ML VIAL INJ IV SCH (10:00)
[2022-05-10] MEDS ORDERED: ASPirin 81 mg TAB PO SCH (10:00)
[2022-05-10] MEDS: MEMANTINE HCL 5 MG TAB PO SCH (10:01)
[2022-05-10] MEDS: amLODIPine BESYLATE 5 MG TAB PO SCH (10:01)
[2022-05-10 11:47] LABS: Calcium 8.5 mg/dL (8.5-10.1)
[2022-05-10 11:49] LABS: BUN/Creatinine Ratio 13.7
[2022-05-10 13:00] VITALS: BP 123/74
[2022-05-10 16:53] VITALS: BP 105/58
== END 2022-05-10 19:00 | disposition home health service (06) | DRG 253 ==
LOC: ER 14:24 → OVERFLOW 21:19 → WEST WING 23:28
PROVIDERS: ADMIT Nurse Practitioner Family; ATTEND Internal Medicine
PROC: B41G1ZZ Fluoroscopy of Left Lower Extremity Arteries using Low Osmolar Contrast (ICD-10-PCS; principal; 2022-05-09)
PROC: 047U34Z Dilation of Left Peroneal Artery with Drug-eluting Intraluminal Device, Percutaneous Approach (ICD-10-PCS; 2022-05-09)
PROC: B41F1ZZ Fluoroscopy of Right Lower Extremity Arteries using Low Osmolar Contrast (ICD-10-PCS; 2022-05-09)
DX: E11.51 Type 2 diabetes mellitus with diabetic peripheral angiopathy without gangrene (principal); L03.116 Cellulitis of left lower limb; L08.9 Local infection of the skin and subcutaneous tissue, unspecified; I10 Essential (primary) hypertension; M19.90 Unspecified osteoarthritis, unspecified site; E87.6 Hypokalemia; G30.9 Alzheimer's disease, unspecified; Z20.822 Contact with and (suspected) exposure to COVID-19; F02.80 Dementia in other diseases classified elsewhere, unspecified severity, without behavioral disturbance, psychotic disturbance, mood disturbance, and anxiety; H91.90 Unspecified hearing loss, unspecified ear; Z79.02 Long term (current) use of antithrombotics/antiplatelets; Z95.820 Peripheral vascular angioplasty status with implants and grafts; Z79.899 Other long term (current) drug therapy
CPT/HCPCS: 36415; 73630; 75635; 80048; 80053; 81001; 82962; 85025; 85610; 85730; 87081; 87426; 93925; 96374; 97110; 97116; 97163; 97530; A4565; C9113; G0378; J1815; J2250; J3490

== ENCOUNTER 2022-05-29 15:53 | Emergency (ER) | payer OTHER ==
[~2022-05-29] VITALS: Ht 175.3 cm; Wt 64.9 kg
[~2022-05-29 15:53] MED LIST changes: +ATOR20TA50 PO; +CLOP75TA28 PO
[2022-05-29 21:10] VITALS: BP 131/76
[2022-05-29] MEDS ORDERED: HYDR-4902 PO (21:11)
== END 2022-05-29 21:16 | disposition home or self-care (01) ==
LOC: ER 15:53
DX: L57.0 Actinic keratosis (principal); D04.9 Carcinoma in situ of skin, unspecified; I10 Essential (primary) hypertension; E11.9 Type 2 diabetes mellitus without complications; Z79.01 Long term (current) use of anticoagulants; Z79.899 Other long term (current) drug therapy

== ENCOUNTER 2022-06-07 13:20 | Emergency (ER) | payer OTHER ==
[~2022-06-07] VITALS: Ht 175.3 cm; Wt 63.7 kg
[~2022-06-07 13:20] MED LIST changes: +HYDR-4902 PO
[2022-06-07 14:30] LABS: Basophils # (auto) 0.1 10 ^3/uL (0-0.2); Basophils % (auto) 0.8 % (0.0-2.0); Eosinophils # (auto) 0 10 ^3/uL (0-0.8); Eosinophils % (auto) 0.2 % (0.0-7.0); Hematocrit 44.7 % (41.0-53.0); Lymphocytes # (auto) 0.8 10 ^3/uL (0.4-5.4); Lymphocytes % (auto) 14.1 % (10.0-50.0); Mean Corpuscular Hemoglobin 32.1 pg (28.0-32.0); Mean Corpuscular Hgb Conc. 33.7 g/dL (32.0-36.0); Mean Corpuscular Volume 95.3 fL (80.0-100.0); Monocytes # (auto) 0.6 10 ^3/uL (0-1.3); Monocytes % (auto) 10.4 % (0.0-12.0); Neutrophils # (auto) 4.5 10 ^3/uL (1.6-8.6); Neutrophils % (auto) 74.5 % (37.0-80.0); Nucleated Red Blood Cells % 0.1 %; Red Blood Cells 4.69 10^6/uL (4.5-5.90); Red Cell Distribution Width 13.8 % (11.8-14.3)
[2022-06-07 14:49] LABS: Albumin 3.5 g/dL (3.4-5.0); Calcium 8.6 mg/dL (8.5-10.1); Potassium 4.1 mmol/L (3.5-5.1)
[2022-06-07 14:51] LABS: INR 0.98 (0.9-1.15); Partial Thromboplastin Time 30.2 sec (24.6-33.4)
[2022-06-07 14:57] LABS: BUN/Creatinine Ratio 10.3 (10.0-20.0); Bilirubin, Total 0.5 mg/dL (0.2-1.0); Total Protein 6.7 g/dL (6.4-8.2)
[2022-06-07 17:59] VITALS: BP 103/69
== END 2022-06-07 18:00 | disposition home or self-care (01) ==
LOC: ER 13:20
DX: I73.9 Peripheral vascular disease, unspecified (principal); F03.90 Unspecified dementia, unspecified severity, without behavioral disturbance, psychotic disturbance, mood disturbance, and anxiety; M19.90 Unspecified osteoarthritis, unspecified site; E11.9 Type 2 diabetes mellitus without complications; I10 Essential (primary) hypertension
CPT/HCPCS: 36415; 80053; 84484; 85025; 85610; 85730; 93925; 93970

== ENCOUNTER 2022-06-24 13:22 | Inpatient (IN) | payer OTHER ==
[~2022-06-24] VITALS: Ht 172.7 cm; Wt 60.7 kg
[2022-06-24 14:44] LABS: Basophils # (auto) 0.1 10 ^3/uL (0-0.2); Eosinophils # (auto) 0.3 10 ^3/uL (0-0.8); Hemoglobin 14.1 g/dL (13.5-17.5); Lymphocytes # (auto) 1.4 10 ^3/uL (0.4-5.4); Lymphocytes % (auto) 25.3 % (10.0-50.0); Mean Corpuscular Hemoglobin 32.1 pg (28.0-32.0); Mean Corpuscular Hgb Conc. 33.7 g/dL (32.0-36.0); Mean Corpuscular Volume 95.1 fL (80.0-100.0); Monocytes # (auto) 0.5 10 ^3/uL (0-1.3); Monocytes % (auto) 9.4 % (0.0-12.0); Neutrophils # (auto) 3.2 10 ^3/uL (1.6-8.6); Neutrophils % (auto) 59.3 % (37.0-80.0); Nucleated Red Blood Cells % 0.1 %; Red Blood Cells 4.41 10^6/uL (4.5-5.90); Red Cell Distribution Width 14.5 % (11.8-14.3); White Blood Cell 5.5 10^3/uL (4.4-10.8)
[2022-06-24 15:35] LABS: Albumin 3.5 g/dL (3.4-5.0); Calcium 8.8 mg/dL (8.5-10.1)
[2022-06-24 15:39] LABS: BUN/Creatinine Ratio 11.8 (10.0-20.0); Bilirubin, Total 0.4 mg/dL (0.2-1.0); Total Protein 6.4 g/dL (6.4-8.2)
[2022-06-24] MEDS ORDERED: HYDROcodone-ACET 5/325MG TAB PO PRN (21:45)
[2022-06-24] MEDS ORDERED: DOCUSATE SOD 100 MG CAP PO PRN (21:45)
[2022-06-24] MEDS ORDERED: MORPHINE SULFATE INJ 2 MG/ml SYRG IV PRN (21:45)
[2022-06-24] MEDS ORDERED: ONDANSETRON HCL 4 MG/2 ML VIAL IV PRN (21:45)
[2022-06-24] MEDS ORDERED: DEXTROSE (50%) 50ML SYRG IV PRN (22:00)
[2022-06-24] MEDS: SODIUM CHLOR 0.9% PF (SALINE LOCK) 10ML VIAL/SYR IV SCH (23:26)
[2022-06-24] MEDS: ACCU-CHEK COMFORT CURVE STRIP VI SCH (23:35)
[2022-06-24] MEDS: InsuLIN REG 1unit/0.01ml Soln (100units/ml) SC SCH (23:39)
[2022-06-24] MEDS: ATORVASTATIN 20 MG TAB PO SCH (23:41)
[2022-06-25 03:27] LABS: Urine Bacteria FEW /hpf (None Seen); Urine Blood Negative /uL (Negative); Urine Mucus FEW (None Seen); Urine Specific Gravity 1.016 (1.001-1.035); Urine WBC 4 /hpf (0 - 3)
[2022-06-25 06:04] LABS: Basophils # (auto) 0 10 ^3/uL (0-0.2); Basophils % (auto) 0.7 % (0.0-2.0); Eosinophils # (auto) 0.3 10 ^3/uL (0-0.8); Eosinophils % (auto) 4.3 % (0.0-7.0); Hematocrit 38.9 % (41.0-53.0); Hemoglobin 13.3 g/dL (13.5-17.5); Lymphocytes # (auto) 1.3 10 ^3/uL (0.4-5.4); Mean Corpuscular Hemoglobin 32.1 pg (28.0-32.0); Mean Corpuscular Hgb Conc. 34.1 g/dL (32.0-36.0); Mean Corpuscular Volume 94.2 fL (80.0-100.0); Monocytes # (auto) 0.7 10 ^3/uL (0-1.3); Monocytes % (auto) 10.6 % (0.0-12.0); Neutrophils # (auto) 4.2 10 ^3/uL (1.6-8.6); Neutrophils % (auto) 64.4 % (37.0-80.0); Nucleated Red Blood Cells % 0.1 %; Red Blood Cells 4.13 10^6/uL (4.5-5.90); Red Cell Distribution Width 14.2 % (11.8-14.3); White Blood Cell 6.5 10^3/uL (4.4-10.8)
[2022-06-25 06:07] LABS: Calcium 8.7 mg/dL (8.5-10.1); Potassium 3.4 mmol/L (3.5-5.1)
[2022-06-25 06:13] LABS: Albumin 3.1 g/dL (3.4-5.0); BUN/Creatinine Ratio 13.1 (10.0-20.0); Bilirubin, Total 0.6 mg/dL (0.2-1.0); Total Protein 6.2 g/dL (6.4-8.2)
[2022-06-25] MEDS: SODIUM CHLOR 0.9% PF (SALINE LOCK) 10ML VIAL/SYR IV SCH ×3 (06:44→21:27)
[2022-06-25] MEDS: ACCU-CHEK COMFORT CURVE STRIP VI SCH ×4 (06:47→21:27)
[2022-06-25] MEDS: InsuLIN REG 1unit/0.01ml Soln (100units/ml) SC SCH ×4 (06:48→21:27)
[2022-06-25] MEDS: PANTOPRAZOLE 40 MG/10 ML VIAL INJ IV SCH (09:33)
[2022-06-25] MEDS: CLOPIDOGREL BISULFATE 75 MG TAB PO SCH (09:33)
[2022-06-25] MEDS: ACETAMINOPHEN 325 MG TAB PO PRN ×2 (09:34→15:18)
[2022-06-25] MEDS: amLODIPine BESYLATE 5 MG TAB PO SCH (09:35)
[2022-06-25 17:03] VITALS: BP 118/67
[2022-06-25] MEDS: ATORVASTATIN 20 MG TAB PO SCH (21:27)
[2022-06-25 21:51] VITALS: BP 127/64
[2022-06-26 04:44] VITALS: BP 135/78
[2022-06-26] MEDS: SODIUM CHLOR 0.9% PF (SALINE LOCK) 10ML VIAL/SYR IV SCH ×2 (06:30→14:00)
[2022-06-26] MEDS: ACCU-CHEK COMFORT CURVE STRIP VI SCH ×3 (06:30→17:00)
[2022-06-26] MEDS: InsuLIN REG 1unit/0.01ml Soln (100units/ml) SC SCH ×3 (06:32→17:00)
[2022-06-26 09:00] VITALS: BP 136/81
[2022-06-26] MEDS: amLODIPine BESYLATE 5 MG TAB PO SCH (10:00)
[2022-06-26] MEDS: PANTOPRAZOLE 40 MG/10 ML VIAL INJ IV SCH (10:00)
[2022-06-26] MEDS: CLOPIDOGREL BISULFATE 75 MG TAB PO SCH (10:00)
[2022-06-26 13:00] VITALS: BP 137/73
[2022-06-26 16:56] VITALS: BP 136/81
[2022-06-26 17:27] VITALS: BP 155/72
== END 2022-06-26 21:57 | disposition home health service (06) | DRG 914 ==
LOC: ER 13:22 → OVERFLOW 21:38 → WEST WING 06-25 16:10
PROVIDERS: ADMIT Nurse Practitioner Family; ATTEND Nurse Practitioner Family
DX: S49.92XA Unspecified injury of left shoulder and upper arm, initial encounter (principal); R29.6 Repeated falls; G30.9 Alzheimer's disease, unspecified; I10 Essential (primary) hypertension; F02.80 Dementia in other diseases classified elsewhere, unspecified severity, without behavioral disturbance, psychotic disturbance, mood disturbance, and anxiety; E11.51 Type 2 diabetes mellitus with diabetic peripheral angiopathy without gangrene; W01.0XXA Fall on same level from slipping, tripping and stumbling without subsequent striking against object, initial encounter; Y93.89 Activity, other specified; Y92.89 Other specified places as the place of occurrence of the external cause; Y99.8 Other external cause status; Z98.62 Peripheral vascular angioplasty status
CPT/HCPCS: 36415; 70450; 71045; 72125; 73030; 73200; 80053; 81001; 82962; 84484; 85025; 93005; 97110; 97116; 97163; 97530; C9113; G0378; J1815